=== PATIENT | male | born 1980 | race Caucasian/White ===

== ENCOUNTER 2021-06-10 16:23 | Inpatient (IN) | payer OTHER ==
[~2021-06-10] VITALS: Ht 177.8 cm; Wt 108.9 kg
[~2021-06-10 16:23] MED LIST: ADMELOG SO100 UNIT/1 SC; AZITHROMYCIN500 MG PO; BACITRAYCIN PLU28 GM TP; BASAGLAR K100 UNIT/1 SC; DELSYM30 MG/5 ML PO; GLUCOPHAGE 500500 MG PO; KEFLEX CAP 500500 MG PO; LOSARTAN POTASS50 MG PO; NAPROSYN500 MG PO; NORFLEX 100 MG100 MG PO; PANTOPRAZOLE SO20 MG PO; PERCOCET 7.5-31 EACH PO; PREDNISONE 50 M50 MG PO; STOOL SOFTENER250 MG PO; Voltaren Gel 1% TOP; ZITHROMAX250 MG PO; ZOFRAN4 MG PO; ZOLOFT25 MG PO
[2021-06-10 18:04] LABS: HEMOGLOBIN 13.4 gm/dl (14.0-17.5); RED BLOOD COUNT 4.23 M/UL (4.20-5.50); WHITE BLOOD COUNT 8.2 K/UL (4.5-11.0)
[2021-06-10 18:24] LABS: BUN/CREATININE RATIO 11 (0-10)
[2021-06-11 04:52] LABS: BUN/CREATININE RATIO 9 (0-10)
[2021-06-11] MEDS ORDERED: BUPRENORPHIN-N1 EACH SL (16:43)
--- NOTE | 2021-06-11 17:59 | NUR ---
AT APPROX 1630 I CHECKED THE PATIENTS GLUCOSE AND IT WAS 455 I RECHECKED IN THE OTHER HAND AND IT WAS 481 I CALLED MD PANCHAL AND SHE TOLD ME TO GIVE 30 UNITS LANTUS THE HOLD TONIGHTS DOSE OF LANTUS OF 20 UNITS AND GIVE 10 UNITS HUMALOG NOW, I RECHECKED AT APPROX 1800 AMD THE PATIENTS GLUCOSE WAS 544 I CALLED MD PANCHAL AND SHE WANTED TO START AN INSULIN DRIP, I CALLED [facility] AND WAS INSTRUCTED THAT WE CANT START INSULIN DRIPS ON THE FLOOR, I NOTIFIED MD PANCHAL AND SHE SAID OK AND ENDED THE PHONE CALL. THE PATIENT ALSO STATED THAT HE TAKES SUBOXONE AND PRESENTED ME WITH THE BOTTLE PRESCRIPTION. I UPDATED HIS HOME MEDS AND CALLED MD PANCHAL TO HAVE HER ORDER WHAT HE TAKES AT HOME. MD PANCHAL WANTED THE BOTTLE THE PATIENT HAS WITH HIM TO BE LOCKED UP SO HE DID NOT HAVE ACCESS TO BOTH WHAT WE ARE GIVING HIM HERE AND HIS BOTTLE. I CALLED [facility] TO SEE THE PROTOCOL ON WHAT I NEED TO DO AND WAS INSTRUCTED TO GIVE THE BOTLE TO PHARMACY TO LOCK UP UNTIL THE PATIENT IS DISHCHARGED, PHARMACY HAS BEEN NOTIFIED AND THE PATIENT HAS BEEN NOTIFIED AND EDUCATED ON WHERE THE MEDICATION WILL BE HELD UNTIL DISCHARGE. PHARMACY HAS NOTIFIED ME THAT I HAVE TO GO [facility] SECURITY PROTOCOL TO LOCK UP MEDICATION, SECURITY HAS BEEN NOTIFIED AND PROCESS COMPLETED. I COUNTED HIS MEDICATION WITH HIM AT BEDSIDE, HE HAS 1 WHOLE PILL AND A QUARTER OF ANOTHER PILL. HE STATED HE LEFT THE OTHER PART OF THE QUARTER PILL AT HOME. WCTM.
--- NOTE | 2021-06-11 21:59 | NUR ---
PT BEING TRANSFERED TO [address] PAN[address]AL 2200 CALLED REPORT TO IMELDA, HE IS IN A DRESSING CHANGE AND WILL RETURN CALL.
--- NOTE | 2021-06-11 22:09 | NUR ---
rechecked pt bg [phone] Delgado per her request
--- NOTE | 2021-06-11 22:38 | NUR ---
CALLED REPORT AGAIN TO IMELDA, PT MOVED TO [phone]
[2021-06-12 05:27] LABS: BUN/CREATININE RATIO 13 (0-10)
[2021-06-12 08:20] LABS: HEMOGLOBIN 13.1 gm/dl (14.0-17.5); RED BLOOD COUNT 4.23 M/UL (4.20-5.50); WHITE BLOOD COUNT 9.5 K/UL (4.5-11.0)
--- NOTE | 2021-06-12 19:19 | NUR ---
PATIENT HAS BEEN NONCOMPLIANT THE ENTIRE SHIFT. UNABLE TO GET PATIENT TO STAY IN ROOM OR EVEN ON THE FLOOR FOR LONGER THAN A COUPLE MINUTES. PATIENT LEAVES FOR HOURS AT A TIME AND UNABLE TO CALL HIS CELL TO FIND HIM BECAUSE IT IS DISCONNECTED. PATIENT HAS IV ANTIBIOTICS THAT WERE NOT GIVEN BECAUSE PATIENT WAS GONE FOR LONGER THAN 3 HOURS AND SECURITY FINALLY FOUND HIM. GLUCOSE CHECKS WERE ALSO NOT ABLE TO ALWAYS BE CHECKED AT CORRECT TIMES DUE TO PATIENTS ABSENCE. PATIENT WAS TOLD MULTIPLE TIMES TO STAY ON FLOOR OR IN ROOM AND HE IGNORED MY REQUESTS. DR. PANCHAL WAS ALSO CALLED MULTIPLE TIMES BY MYSELF AND [employer] SO SHE WOULD BE MADE AWARE OF PATIENTS NONCOMPLIANCE.
[2021-06-13 06:04] LABS: HEMOGLOBIN 12.4 gm/dl (14.0-17.5); RED BLOOD COUNT 3.99 M/UL (4.20-5.50); WHITE BLOOD COUNT 8.2 K/UL (4.5-11.0)
[2021-06-13 06:34] LABS: BUN/CREATININE RATIO 12 (0-10)
--- NOTE | 2021-06-14 01:54 | NUR ---
06/13/21 1100 AM PT LEFT AMA. STATED HE DIDN'T WANT TO WAIT ON THE MD D\T GOING TO WORK. EXPLAINED TO PATIENT R&B OF LEAVING WITHOUT SEEING MD OR GETTING PRESCRIPTIONS FOR MEDICATIONS THAT HE NEEDED. PT STATED HE WOULD BE FINE AND DIDN'T NEED THE MEDICATIONS. IV WAS REMOVED,PT BELONGINGS WERE RETRIVED FROM PHARMACY. PT SIGNED AMA FORM AND LEFT THE FLOOR.
[2021-06-14 05:13] LABS: HBSAG SCREEN Negative (Negative); HEP A AB, IGM Negative (Negative); HEP B CORE AB, IGM Negative (Negative); HEP C VIRUS AB >11.0 (0.0-0.9)
== END 2021-06-13 10:55 | disposition left against medical advice (07) | DRG 580 ==
LOC: ER1 16:23 → CDU 19:07 → PROG CARE 19:07 → M/S 23:45 → PROG CARE 06-11 22:42
PROVIDERS: Emergency Medicine; ADMIT Internal Medicine
PROC: 0J9H0ZZ Drainage of Left Lower Arm Subcutaneous Tissue and Fascia, Open Approach (ICD-10-PCS; principal; 2021-06-10)
DX: L02.414 Cutaneous abscess of left upper limb (principal); E72.51 Non-ketotic hyperglycinemia; Z20.822 Contact with and (suspected) exposure to COVID-19; E11.65 Type 2 diabetes mellitus with hyperglycemia; Z79.4 Long term (current) use of insulin; E87.6 Hypokalemia; F11.10 Opioid abuse, uncomplicated; L03.114 Cellulitis of left upper limb; J98.01 Acute bronchospasm; F17.210 Nicotine dependence, cigarettes, uncomplicated; R74.01 Elevation of levels of liver transaminase levels; Z79.899 Other long term (current) drug therapy; R42 Dizziness and giddiness
CPT/HCPCS: 36415; 36600; 70450; 71045; 73090; 80048; 80053; 80074; 80076; 80202; 80307; 81003; 82009; 82550; 82553; 82803; 82962; 83036; 83874; 84484; 85025; 87040; 93005; 94640; 94664; 94760; 99285; J0295; J1650; J2920; J3370; J7030; J7050; U0002

== ENCOUNTER 2022-06-21 09:10 | Inpatient (IN) | payer OTHER ==
[~2022-06-21] VITALS: Ht 177.8 cm; Wt 130.0 kg
[~2022-06-21 09:10] MED LIST changes: +BUPRENORPHIN-N1 EACH SL
[2022-06-21 09:38] LABS: HEMOGLOBIN 17.4 gm/dl (14.0-17.5); RED BLOOD COUNT 5.6 M/UL (4.20-5.50)
[2022-06-21 09:59] LABS: WHITE BLOOD COUNT 32.1 K/UL (4.5-11.0)
[2022-06-21 10:05] LABS: BUN/CREATININE RATIO 21 (0-10)
[2022-06-21 13:38] LABS: HEMOGLOBIN 17.8 gm/dl (14.0-17.5); RED BLOOD COUNT 5.74 M/UL (4.20-5.50)
[2022-06-22 04:10] LABS: CANDIDA ALBICANS Not Detected (Negative); CANDIDA KRUSEI Not Detected (Negative); CANDIDA TROPICALIS Not Detected (Negative); ESCHERICHIA COLI Not Detected (Negative); HAEMOPHILUS INFLUENZAE Not Detected (Negative); KLEBSIELLA OXYTOCA Not Detected (Negative); KLEBSIELLA PNEUMONIAE Not Detected (Negative); KPC-CARBAPENEM-RESISTANCE GENE Not Detected (Negative); PROTEUS Not Detected (Negative); PSEUDOMONAS AERUGINOSA Not Detected (Negative); SERRATIA MARCESANS Not Detected (Negative); STREP AGALACTIAE (GROUP B) Not Detected (Negative); STREP PYOGENES (GROUP A) Not Detected (Negative); STREPTOCOCCUS Not Detected (Negative); vanA/B (VANCOMYCIN RESIST GENE Not Detected (Negative)
[2022-06-22 05:20] LABS: STAPHYLOCOCCUS DETECTED (Negative); STAPHYLOCOCCUS AUREUS Not Detected (Negative)
[2022-06-22 06:22] LABS: WHITE BLOOD COUNT 26.2 K/UL (4.5-11.0)
[2022-06-22 06:30] LABS: HEMOGLOBIN 15.4 gm/dl (14.0-17.5)
[2022-06-22 14:49] LABS: CANDIDA ALBICANS Not Detected (Negative); CANDIDA KRUSEI Not Detected (Negative); CANDIDA TROPICALIS Not Detected (Negative); ESCHERICHIA COLI Not Detected (Negative); HAEMOPHILUS INFLUENZAE Not Detected (Negative); KLEBSIELLA OXYTOCA Not Detected (Negative); KLEBSIELLA PNEUMONIAE Not Detected (Negative); KPC-CARBAPENEM-RESISTANCE GENE Not Detected (Negative); PROTEUS Not Detected (Negative); PSEUDOMONAS AERUGINOSA Not Detected (Negative); SERRATIA MARCESANS Not Detected (Negative); STAPHYLOCOCCUS AUREUS Not Detected (Negative); STREP AGALACTIAE (GROUP B) Not Detected (Negative); STREP PYOGENES (GROUP A) Not Detected (Negative); STREPTOCOCCUS Not Detected (Negative); vanA/B (VANCOMYCIN RESIST GENE Not Detected (Negative)
[2022-06-22 16:31] LABS: STAPHYLOCOCCUS DETECTED (Negative)
[2022-06-23 04:18] LABS: RED BLOOD COUNT 4.43 M/UL (4.20-5.50); WHITE BLOOD COUNT 17.1 K/UL (4.5-11.0)
[2022-06-24 06:11] LABS: HEMOGLOBIN 12.8 gm/dl (14.0-17.5); RED BLOOD COUNT 4.17 M/UL (4.20-5.50); WHITE BLOOD COUNT 14.5 K/UL (4.5-11.0)
[2022-06-25 04:01] LABS: HEMOGLOBIN 12.5 gm/dl (14.0-17.5); RED BLOOD COUNT 4.12 M/UL (4.20-5.50); WHITE BLOOD COUNT 13.7 K/UL (4.5-11.0)
[2022-06-26 07:36] LABS: WHITE BLOOD COUNT 15.4 K/UL (4.5-11.0)
[2022-06-26 07:37] LABS: HEMOGLOBIN 9.6 gm/dl (14.0-17.5); RED BLOOD COUNT 3.25 M/UL (4.20-5.50)
[2022-06-27 03:56] LABS: HEMOGLOBIN 11.5 gm/dl (14.0-17.5); WHITE BLOOD COUNT 14.1 K/UL (4.5-11.0)
[2022-06-27 04:01] LABS: RED BLOOD COUNT 3.81 M/UL (4.20-5.50)
[2022-06-28 05:08] LABS: HEMOGLOBIN 10.7 gm/dl (14.0-17.5); RED BLOOD COUNT 3.56 M/UL (4.20-5.50); WHITE BLOOD COUNT 15.5 K/UL (4.5-11.0)
[2022-06-29 05:35] LABS: HEMOGLOBIN 10.6 gm/dl (14.0-17.5); RED BLOOD COUNT 3.53 M/UL (4.20-5.50); WHITE BLOOD COUNT 13.7 K/UL (4.5-11.0)
[2022-06-29 20:57] LABS: HEMOGLOBIN 10.2 gm/dl (14.0-17.5); RED BLOOD COUNT 3.38 M/UL (4.20-5.50); WHITE BLOOD COUNT 15.2 K/UL (4.5-11.0)
[2022-06-30 02:43] LABS: HEMOGLOBIN 10.3 gm/dl (14.0-17.5); RED BLOOD COUNT 3.44 M/UL (4.20-5.50)
[2022-06-30 08:20] LABS: HEMOGLOBIN 10.1 gm/dl (14.0-17.5); RED BLOOD COUNT 3.34 M/UL (4.20-5.50); WHITE BLOOD COUNT 15.3 K/UL (4.5-11.0)
[2022-07-01 04:41] LABS: HEMOGLOBIN 9.9 gm/dl (14.0-17.5); RED BLOOD COUNT 3.3 M/UL (4.20-5.50); WHITE BLOOD COUNT 16.3 K/UL (4.5-11.0)
[2022-07-02 04:11] LABS: HEMOGLOBIN 9.8 gm/dl (14.0-17.5); RED BLOOD COUNT 3.27 M/UL (4.20-5.50); WHITE BLOOD COUNT 19.4 K/UL (4.5-11.0)
[2022-07-02 15:11] LABS: HBSAG SCREEN Negative (Negative); HCV AB >11.0 (0.0-0.9); HEP A AB, IGM Negative (Negative); HEP B CORE AB, IGM Negative (Negative); HEPATITIS C QUANTITATION 6760000 IU/mL (.)
[2022-07-03 04:59] LABS: HEMOGLOBIN 9.8 gm/dl (14.0-17.5); RED BLOOD COUNT 3.25 M/UL (4.20-5.50); WHITE BLOOD COUNT 17.6 K/UL (4.5-11.0)
[2022-07-03 06:10] LABS: HIV AB/P24 AG SCREEN Non Reactive (Non Reactive)
--- NOTE | 2022-07-04 13:39 | NUR ---
07/02/2022 1300 SPOKE TO ANNELIESE ON THE PHONE. ANNELIESE STATED THEY ARE NO LONGER FOLLOWING PT'S CASE
[2022-07-05 05:17] LABS: HEMOGLOBIN 9.3 gm/dl (14.0-17.5); RED BLOOD COUNT 3.2 M/UL (4.20-5.50); WHITE BLOOD COUNT 17.3 K/UL (4.5-11.0)
[2022-07-06 04:16] LABS: HEMOGLOBIN 9.1 gm/dl (14.0-17.5); RED BLOOD COUNT 3.02 M/UL (4.20-5.50)
[2022-07-06 04:17] LABS: WHITE BLOOD COUNT 12.7 K/UL (4.5-11.0)
[2022-07-07 03:08] LABS: HEMOGLOBIN 8.8 gm/dl (14.0-17.5); RED BLOOD COUNT 2.95 M/UL (4.20-5.50); WHITE BLOOD COUNT 11.2 K/UL (4.5-11.0)
[2022-07-08 08:00] LABS: HEMOGLOBIN 8.8 gm/dl (14.0-17.5); RED BLOOD COUNT 2.95 M/UL (4.20-5.50); WHITE BLOOD COUNT 10.7 K/UL (4.5-11.0)
[2022-07-09 03:56] LABS: HEMOGLOBIN 8.8 gm/dl (14.0-17.5); RED BLOOD COUNT 2.95 M/UL (4.20-5.50); WHITE BLOOD COUNT 11.6 K/UL (4.5-11.0)
[2022-07-10 04:42] LABS: HEMOGLOBIN 8.8 gm/dl (14.0-17.5); RED BLOOD COUNT 2.96 M/UL (4.20-5.50); WHITE BLOOD COUNT 12.5 K/UL (4.5-11.0)
[2022-07-11 05:29] LABS: HEMOGLOBIN 8.5 gm/dl (14.0-17.5); RED BLOOD COUNT 2.84 M/UL (4.20-5.50); WHITE BLOOD COUNT 12.9 K/UL (4.5-11.0)
[2022-07-12 04:27] LABS: HEMOGLOBIN 8.3 gm/dl (14.0-17.5); RED BLOOD COUNT 2.76 M/UL (4.20-5.50); WHITE BLOOD COUNT 13.9 K/UL (4.5-11.0)
[2022-07-12] MEDS ORDERED: HYDRALAZINE HCL25 MG PO (11:09)
[2022-07-12] MEDS ORDERED: IPRAT-ALBUT 0.5-3 ML NEB (11:09)
[2022-07-12] MEDS ORDERED: TYLENOL ELIXIR PO (11:09)
[2022-07-12] MEDS ORDERED: HUMULIN R100 UNIT/1 SC (11:09)
[2022-07-12] MEDS ORDERED: LOPRESSOR 50 MG50 MG PO (11:09)
[2022-07-12] MEDS ORDERED: COLACE SOL100 MG/10 PO (11:09)
[2022-07-12] MEDS ORDERED: ISORDIL TAB 1010 MG PO (11:09)
[2022-07-12] MEDS ORDERED: SANTYL OINT 3030 GM TOP (11:09)
[2022-07-12] MEDS ORDERED: PREDNISONE 20 M20 MG PO ×2 (11:09→11:12)
[2022-07-12] MEDS ORDERED: CALCIUM500 M1 GT (11:09)
[2022-07-12] MEDS ORDERED: KEPPRA 100100 MG/1 M PO (11:09)
[2022-07-12] MEDS ORDERED: AMLODIPINE BESYL5 MG PO (11:12)
[2022-07-12] MEDS ORDERED: LEVOFLOXACIN250 MG PO (11:16)
[2022-07-12] MEDS ORDERED: FLUCONAZOLE100 MG PO (11:21)
== END 2022-07-12 20:40 | DRG 3 ==
LOC: ER1 09:10 → CDU 10:48 → CCU 10:48
PROVIDERS: Emergency Medicine; Family Medicine; Internal Medicine; Internal Medicine Cardiovascular Disease; Internal Medicine Critical Care Medicine; Internal Medicine Infectious Disease; Internal Medicine Nephrology; Internal Medicine Pulmonary Disease; Physician Assistant Medical; ADMIT Internal Medicine
PROC: 05HM33Z Insertion of Infusion Device into Right Internal Jugular Vein, Percutaneous Approach (ICD-10-PCS; 2022-06-21)
PROC: B543ZZA Ultrasonography of Right Jugular Veins, Guidance (ICD-10-PCS; 2022-06-21)
PROC: 3E043XZ Introduction of Vasopressor into Central Vein, Percutaneous Approach (ICD-10-PCS; 2022-06-21)
PROC: 5A1955Z Respiratory Ventilation, Greater than 96 Consecutive Hours (ICD-10-PCS; 2022-06-21)
PROC: 0BH18EZ Insertion of Endotracheal Airway into Trachea, Via Natural or Artificial Opening Endoscopic (ICD-10-PCS; 2022-06-21)
PROC: 4A10X4Z Monitoring of Central Nervous Electrical Activity, External Approach (ICD-10-PCS; principal; 2022-06-22)
PROC: B24BZZZ Ultrasonography of Heart with Aorta (ICD-10-PCS; 2022-06-23)
PROC: 05HN33Z Insertion of Infusion Device into Left Internal Jugular Vein, Percutaneous Approach (ICD-10-PCS; 2022-06-30)
PROC: B544ZZA Ultrasonography of Left Jugular Veins, Guidance (ICD-10-PCS; 2022-06-30)
PROC: 5A1D70Z Performance of Urinary Filtration, Intermittent, Less than 6 Hours Per Day (ICD-10-PCS; 2022-06-30)
PROC: 5A1D70Z Performance of Urinary Filtration, Intermittent, Less than 6 Hours Per Day (ICD-10-PCS; 2022-07-02)
PROC: 5A1D70Z Performance of Urinary Filtration, Intermittent, Less than 6 Hours Per Day (ICD-10-PCS; 2022-07-03)
PROC: 5A1D70Z Performance of Urinary Filtration, Intermittent, Less than 6 Hours Per Day (ICD-10-PCS; 2022-07-04)
PROC: 0DH63UZ Insertion of Feeding Device into Stomach, Percutaneous Approach (ICD-10-PCS; 2022-07-05)
PROC: 3E0336Z Introduction of Nutritional Substance into Peripheral Vein, Percutaneous Approach (ICD-10-PCS; 2022-07-05)
PROC: 0B113F4 Bypass Trachea to Cutaneous with Tracheostomy Device, Percutaneous Approach (ICD-10-PCS; 2022-07-05)
PROC: 0DH63UZ Insertion of Feeding Device into Stomach, Percutaneous Approach (ICD-10-PCS; 2022-07-05)
PROC: 5A1D70Z Performance of Urinary Filtration, Intermittent, Less than 6 Hours Per Day (ICD-10-PCS; 2022-07-06)
PROC: 5A1D70Z Performance of Urinary Filtration, Intermittent, Less than 6 Hours Per Day (ICD-10-PCS; 2022-07-08)
PROC: 0JBN0ZZ Excision of Right Lower Leg Subcutaneous Tissue and Fascia, Open Approach (ICD-10-PCS; 2022-07-10)
PROC: 0VB50ZZ Excision of Scrotum, Open Approach (ICD-10-PCS; 2022-07-10)
DX: T43.621A Poisoning by amphetamines, accidental (unintentional), initial encounter (principal); A41.01 Sepsis due to Methicillin susceptible Staphylococcus aureus; J69.0 Pneumonitis due to inhalation of food and vomit; J18.9 Pneumonia, unspecified organism; N17.0 Acute kidney failure with tubular necrosis; G92.8 Other toxic encephalopathy; J80 Acute respiratory distress syndrome; R65.21 Severe sepsis with septic shock; J15.211 Pneumonia due to Methicillin susceptible Staphylococcus aureus; I26.90 Septic pulmonary embolism without acute cor pulmonale; J15.9 Unspecified bacterial pneumonia; E87.1 Hypo-osmolality and hyponatremia; F11.20 Opioid dependence, uncomplicated; I96 Gangrene, not elsewhere classified; M62.82 Rhabdomyolysis; G93.1 Anoxic brain damage, not elsewhere classified; J98.11 Atelectasis; K56.7 Ileus, unspecified; E87.0 Hyperosmolality and hypernatremia; I16.0 Hypertensive urgency; Z96.619 Presence of unspecified artificial shoulder joint; E78.5 Hyperlipidemia, unspecified; F17.210 Nicotine dependence, cigarettes, uncomplicated; J45.909 Unspecified asthma, uncomplicated; L89.322 Pressure ulcer of left buttock, stage 2; L89.312 Pressure ulcer of right buttock, stage 2; L89.626 Pressure-induced deep tissue damage of left heel; L89.616 Pressure-induced deep tissue damage of right heel; L89.892 Pressure ulcer of other site, stage 2; L89.812 Pressure ulcer of head, stage 2; L89.116 Pressure-induced deep tissue damage of right upper back; L89.126 Pressure-induced deep tissue damage of left upper back; E11.65 Type 2 diabetes mellitus with hyperglycemia; Z20.822 Contact with and (suspected) exposure to COVID-19; R56.9 Unspecified convulsions; B18.2 Chronic viral hepatitis C; E87.5 Hyperkalemia; E83.39 Other disorders of phosphorus metabolism; Z66 Do not resuscitate; R74.01 Elevation of levels of liver transaminase levels; E86.0 Dehydration; K59.00 Constipation, unspecified; Z91.14 Patient's other noncompliance with medication regimen; Z79.84 Long term (current) use of oral hypoglycemic drugs; Z79.899 Other long term (current) drug therapy; Z91.81 History of falling; Z86.73 Personal history of transient ischemic attack (TIA), and cerebral infarction without residual deficits; Z81.8 Family history of other mental and behavioral disorders; Z74.01 Bed confinement status; Z99.2 Dependence on renal dialysis; Z51.5 Encounter for palliative care
CPT/HCPCS: ECHO; 0240U; 31500; 36415; 36600; 70450; 71045; 71250; 74018; 76705; 80048; 80053; 80074; 80202; 80307; 81001; 82140; 82150; 82248; 82550; 82553; 82803; 82962; 82977; 83036; 83605; 83615; 83690; 83735; 83880; 84100; 84132; 84133; 84146; 84300; 84478; 84484; 85025; 85027; 85384; 85610; 85652; 85730; 86140; 87040; 87070; 87077; 87081; 87086; 87150; 87186; 87205; 87389; 90937; 93005; 93306; 93308; 94002; 94003; 94640; 94664; 94667; 94668; 94760; 95816; 95824; 96374; 96375; 99285; A6212; C1769; C9113; G0257; G0480; J0360; J0692; J0696; J1644; J1650; J1940; J1953; J2150; J2185; J2250; J2270; J2405; J2543; J2704; J2765; J2920; J3010; J3370; J3411; J7030; J7040; J7050; J7070; P9047; U0002